=== PATIENT | female | born 1970 | race Hispanic/Latino ===

== ENCOUNTER 2018-02-03 15:02 | Emergency (ER) | payer OTHER ==
[2018-02-03 15:02] VITALS: BMI 45.3
[2018-02-03 15:27] VITALS: BP 145/94; PULSE 82; RESP 18; TEMP 98.3; O2SAT 97
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
== END 2018-02-03 18:52 | disposition home or self-care (01) ==
LOC: ED 15:02
DX: S46.912A Strain of unspecified muscle, fascia and tendon at shoulder and upper arm level, left arm, initial encounter (principal); R07.89 Other chest pain; M79.18 Myalgia, other site; V49.49XA Driver injured in collision with other motor vehicles in traffic accident, initial encounter; Y92.410 Unspecified street and highway as the place of occurrence of the external cause